=== PATIENT | male | born 1955 | race Caucasian/White ===

== ENCOUNTER 2018-11-14 07:27 | Day surgery (SDC) | payer BC, OTHER ==
[2018-11-03 16:07] VITALS: BMI 22.5
[2018-11-14] MEDS ORDERED: PROPOFOL 20 ML ONE ×3 (08:58)
[2018-11-14] MEDS ORDERED: LIDOCAINE HCL/PF 2% SDV 5ML VIAL ONE (08:59)
[2018-11-14 10:54] VITALS: TEMP 97.6
[2018-11-14 10:58] VITALS: BP 140/86; PULSE 78
--- NOTE | 2018-11-17 13:20 | PATH ---
Surgical Pathology Report Patient Name: VLAD CLARKE JR [facility]. Rec. #: [id number] /Age/Gender: 1955 (Age: 63) / M Account: [id number] Location: [facility] Taken: 11/14/2018 Received: 11/14/2018 Reported: 11/17/2018 Physicians: Lyndsey Brown M.D. Specimen(s) Received A: TERMINAL ILEUM B: DESCENDING COLON C: DESCENDING COLON POLYP D: SIGMOID E: DUODENUM F: ANTRUM G: BODY OF STOMACH H: ESOPHAGEAL POLYP I: DISTAL ESOPHAGUS J: PROXIMAL ESOPHAGUS Clinical History History of polyps and GERD Postoperative diagnosis: Rule out microscopic colitis, polyps, gastritis, rule out eosinophilic esophagitis Final Diagnosis A. TERMINAL ILEUM, BIOPSY: ILEAL MUCOSA WITHOUT SIGNIFICANT PATHOLOGIC FINDINGS. B. DESCENDING COLON, BIOPSY: POLYPOID COLONIC MUCOSA WITH PROMINENT LYMPHOID AGGREGATE AND FOCAL SUPERFICIAL HYPERPLASTIC FEATURES. C. DESCENDING COLON, POLYP, BIOPSY: TUBULAR ADENOMA. D. SIGMOID COLON, BIOPSY: POLYPOID COLONIC MUCOSA WITH PROMINENT LYMPHOID AGGREGATE. E. DUODENUM, BIOPSY: DUODENAL MUCOSA WITHOUT SIGNIFICANT PATHOLOGIC FINDINGS. F. STOMACH, ANTRUM, BIOPSY: GASTRIC ANTRAL MUCOSA WITH MILD CHRONIC GASTRITIS. IMMUNOHISTOCHEMICAL STAIN FOR H. PYLORI IS NEGATIVE. G. STOMACH, BODY, BIOPSY: GASTRIC BODY MUCOSA WITH MILD CHRONIC GASTRITIS. IMMUNOHISTOCHEMICAL STAIN FOR H. PYLORI IS NEGATIVE. H. ESOPHAGEAL POLYP, BIOPSY: POLYPOID SQUAMOUS MUCOSA WITH VASCULAR CONGESTION AND MILD BASAL CELL HYPERPLASIA. I. DISTAL ESOPHAGUS, BIOPSY: SQUAMOUS MUCOSA WITH MILD BASAL CELL HYPERPLASIA CONSISTENT WITH MILD REFLUX ESOPHAGITIS. NO COLUMNAR MUCOSA, INTESTINAL METAPLASIA, OR DYSPLASIA IDENTIFIED. J. PROXIMAL ESOPHAGUS, BIOPSY: SQUAMOUS MUCOSA WITH MILD VASCULAR CONGESTION, AND MILD BASAL CELL HYPERPLASIA CONSISTENT MILD WITH REFLUX ESOPHAGITIS. Electronically Signed Celeste Castellanos M.D. Gross Description A. Received in formalin, labeled "terminal ileum" are 2 burns, irregular portions of soft tissue averaging 0.2 cm. in greatest dimension. The specimens are submitted in toto in one cassette. B. Received in formalin, labeled "descending colon" is a burns, irregular portion of soft tissue measuring 0.3 cm. in greatest dimension. The specimen is submitted in toto in one cassette. C. Received in formalin, labeled "descending colon polyp" are 2 burns, irregular portions of soft tissue averaging 0.3 cm. in greatest dimension. The specimens are submitted in toto in one cassette. D. Received in formalin, labeled "sigmoid" are 2 burns, irregular portions of soft tissue measuring 0.1 and 0.3 cm. in greatest dimension. The specimens are submitted in toto in one cassette. E. Received in formalin, labeled "duodenum" are 4 burns, irregular portions of soft tissue ranging from 0.3-0.5 cm. in greatest dimension. The specimens are submitted in toto in one cassette. F. Received in formalin, labeled "antrum" is a burns, irregular portion of soft tissue measuring 0.6 cm. in greatest dimension. The specimen is submitted in toto in one cassette. G. Received in formalin, labeled "body of stomach" are 3 burns, irregular portions of soft tissue ranging from 0.1-0.5 cm. in greatest dimension. The specimens are submitted in toto in one cassette. H. Received in formalin, labeled "esophageal polyp" is a burns, irregular portion of soft tissue measuring 0.2 cm. in greatest dimension. The specimen is submitted in toto in one cassette. I. Received in formalin, labeled "distal esophagus" is a burns, irregular portion of soft tissue measuring 0.6 cm. in greatest dimension. The specimen is submitted in toto in one cassette. J. Received in formalin, labeled "proximal esophagus" are 2 burns, irregular portions of soft tissue measuring 0.3 and 0.4 cm. in greatest dimension. The specimens are submitted in toto in one cassette. 11/14/2018 saudi11/14/2018
== END 2018-11-14 10:50 | disposition home or self-care (01) ==
LOC: FASU-ENDO 07:27 → MERGE 08:15 → FASU-ENDO 10:50
PROVIDERS: ATTEND Internal Medicine
PROC: 0DBB8ZX Excision of Ileum, Via Natural or Artificial Opening Endoscopic, Diagnostic (ICD-10-PCS; 2018-11-14)
PROC: 0DB98ZX Excision of Duodenum, Via Natural or Artificial Opening Endoscopic, Diagnostic (ICD-10-PCS; 2018-11-14)
PROC: 0DB78ZX Excision of Stomach, Pylorus, Via Natural or Artificial Opening Endoscopic, Diagnostic (ICD-10-PCS; 2018-11-14)
PROC: 0DB68ZX Excision of Stomach, Via Natural or Artificial Opening Endoscopic, Diagnostic (ICD-10-PCS; 2018-11-14)
PROC: 0DB18ZX Excision of Upper Esophagus, Via Natural or Artificial Opening Endoscopic, Diagnostic (ICD-10-PCS; 2018-11-14)
PROC: 0DB38ZX Excision of Lower Esophagus, Via Natural or Artificial Opening Endoscopic, Diagnostic (ICD-10-PCS; 2018-11-14)
PROC: 0DBM8ZX Excision of Descending Colon, Via Natural or Artificial Opening Endoscopic, Diagnostic (ICD-10-PCS; principal; 2018-11-14 09:13)
DX: Z86.010 Personal history of colon polyps (principal); D12.4 Benign neoplasm of descending colon; K64.8 Other hemorrhoids; K63.89 Other specified diseases of intestine; K29.50 Unspecified chronic gastritis without bleeding; K22.9 Disease of esophagus, unspecified; K21.0 Gastro-esophageal reflux disease with esophagitis; K31.7 Polyp of stomach and duodenum
CPT/HCPCS: 88305-TC; 88342-TC

== ENCOUNTER 2019-01-17 20:39 | Emergency (ER) | payer BC ==
[2019-01-17 20:49] VITALS: BP 152/93; PULSE 70; TEMP 97.9; BMI 22.5
--- NOTE | 2019-01-17 21:00 | PDOC ---
Documentation entered by Jacinto Ram SCRIBE, acting as scribe for Nita Finch MD. Nita Finch MD: This documentation has been prepared by the Yo olmstead Xhesika, SCRIBE, under my direction and personally reviewed by me in its entirety. I confirm that the documentation accurately reflects all work, treatment, procedures, and medical decision making performed by me. History of Present Illness - General Chief Complaint: Injury Stated Complaint: RT ELBOW PAIN History Source: Patient Exam Limitations: No Limitations - History of Present Illness Initial Comments: 01/17/19 21:00 Assessment plan: This is 63-year-old male who fell injuring his right elbow. Patient denies any other injuries or trauma. X-ray of elbow ordered. X-ray reviewed by me, positive sail sign questionable radial head fracture Patient given posterior elbow splint put in a sling and told follow-up with Dr. Nunez orthopedist 01/17/19 21:03 Procedure note: OCL posterior elbow splint applied neurovascular post-splint application intact patient put in a sling The patient is a 63 year old male, with a significant past medical history of HTN, hypothyroidism, and Hypercholesterolemia who presents to the emergency department with an injury prior to his arrival to the ED. The patient states he is moving so while he was walking, he tripped over a gate and fell on his R arm. The patient states he endorses diffuse right elbow pain that is aggravated with any type of elbow movement. The patient denies chest pain, shortness of breath, headache or dizziness. The patient denies fever, chills, nausea, vomit, diarrhea or constipation. The patient denies dysuria, frequency, urgency or hematuria. PAST MEDICAL HISTORY: no significant history PAST SURGICAL HISTORY: no significant history FAMILY HISTORY: no pertinent history SOCIAL HISTORY: Pt lives with family and is employed. MEDICATIONS: reviewed ALLERGIES: As per nursing notes Past History - Past Medical History Allergies/Adverse Reactions: Allergies Allergy/AdvReac Type Severity Reaction Status Date / Time No Known Allergies Allergy Unverified 11/03/18 15:58 Home Medications: Ambulatory Orders Colesevelam HCl 1,875 mg PO BID 02/11/12 Folic Acid/Mv,Fe,Min [Centrum Multivitamin Tab Chew] 1 each PO DAILY 09/08/14 Aspirin/Acetaminophen/Caffeine [Excedrin Extra Strength Caplet] 1 each PO QID PRN 11/03/18 Bupropion HCl [Bupropion HCl ER] 200 mg PO BID 11/03/18 Cassiusoph,Paracasei, B.lactis [Probiotic] 1 each PO DAILY 11/03/18 Anemia: No Asthma: No Cancer: No Cardiac Disorders: No CVA: No COPD: No CHF: No Dementia: No Diabetes: No GI Disorders: Yes (HERNIA) Disorders: No HTN: Yes Hypercholesterolemia: Yes Liver Disease: No Seizures: No Thyroid Disease: Yes (HYPOTHYROID) - Surgical History Abdominal Surgery: No Appendectomy: No Cardiac Surgery: No Cholecystectomy: No Lung Surgery: No Neurologic Surgery: No Orthopedic Surgery: No - Suicide/Smoking/Psychosocial Hx Smoking Status: No Smoking History: Never smoked Number of Cigarettes Smoked Daily: 0 Hx Alcohol Use: No Drug/Substance Use Hx: No Substance Use Type: None Hx Substance Use Treatment: No Review of Systems - Review of Systems Able to Perform ROS?: Yes Comments:: 01/17/19 21:04 General: No fevers or chills, no weakness, no weight loss HEENT: No change in vision. No sore throat,. No ear pain CardioVascular: No chest pain or shortness of breath Respiratory:No cough, or wheezing. Gastrointestinal: no nausea, vomiting, diarrhea or constipation, No rectal bleeding Genitourinary: No dysuria, hematuria, or frequency Musculoskeletal: (+) R elbow pain. No joint or muscle pain or swelling Neurologic: No headache, vertigo, dizziness or loss of consciousness Psychiatric: nor depression Skin: No rashes or easy bruising Endocrine: no increased thirst or abnormal weight change Allergic: no skin or latex allergy All other systems reviewed and normal *Physical Exam - Vital Signs Last Vital Signs Temp Pulse Resp BP Pulse Ox 97.9 F 70 16 152/93 100 01/17/19 20:42 01/17/19 20:42 01/17/19 20:42 01/17/19 20:42 01/17/19 20:42 - Physical Exam Comments: 01/17/19 21:04 GENERAL: The patient is awake, alert, and fully oriented, in no acute distress. HEAD: Normal with no signs of trauma. EYES: Pupils equal, round and reactive to light, extraocular movements intact, sclera anicteric, conjunctiva clear. EXTREMITIES: (+) Tenderness on palpation of lateral elbow with swelling. (+) decrease range of motion secondary to pain. No edema. NEUROLOGICAL: Normal speech, normal gait. PSYCH: Normal mood, normal affect. SKIN: Warm, Dry, normal turgor, no rashes or lesions noted. ED Treatment Course - RADIOLOGY Radiology Studies Ordered: Category Date Time Status ELBOW-RIGHT [RAD] Stat Radiology 01/17/19 20:58 Ordered *DC/Admit/Observation/Transfer Diagnosis at time of Disposition: Elbow fracture, left Qualifiers: Encounter type: initial encounter Fracture type: closed Qualified Code(s): S42.402A - Unspecified fracture of lower end of left humerus, initial encounter for closed fracture - Discharge Dispostion Disposition: HOME Condition at time of disposition: Stable Decision to Admit order: No - Referrals Referrals: Clint Treadwell [Primary Care Provider] - - Patient Instructions Printed Discharge Instructions: How to Use a Sling Additional Instructions: For the pain take ibuprofen 3 tablets 3 times a day with food alternately you can take Aleve 2 tablets twice a day. Leave the elbow and the splint and wear the sling until you see an orthopedist. Return to the emergency department immediately with ANY new, persistent or worsening symptoms. Continue any medications as previously prescribed by your physician. You should follow up with your primary doctor as soon as possible regarding today's emergency department visit. . Please make sure your doctor reviews the results of your emergency evaluation. Thank you for coming to the Emergency Department today for your care. It was a pleasure to see you today. Please note that your evaluation is INCOMPLETE until you follow-up with your doctor. - Post Discharge Activity
[2019-01-17] MEDS ORDERED: IBUPROFEN 600 MG TABLET (FP) PO ONE ×2 (21:15)
== END 2019-01-17 21:57 | disposition home or self-care (01) ==
LOC: FER 20:39
PROC: 2W3CX1Z Immobilization of Right Lower Arm using Splint (ICD-10-PCS; principal; 2019-01-17)
DX: S52.121A Displaced fracture of head of right radius, initial encounter for closed fracture (principal); W01.0XXA Fall on same level from slipping, tripping and stumbling without subsequent striking against object, initial encounter; Y93.01 Activity, walking, marching and hiking; Y92.89 Other specified places as the place of occurrence of the external cause
CPT/HCPCS: 73070-TC-RT-FY; 99282-25